=== PATIENT | male | born 1995 | race Caucasian/White ===

== ENCOUNTER 2016-10-26 21:35 | Observation (INO) | payer BC ==
[2016-10-26 21:50] VITALS: BP 113/77; TEMP 98
[2016-10-26] MEDS ORDERED: Sodium Chloride 0.9% 1,000 ML IV ONE (22:00)
[2016-10-26] MEDS ORDERED: DiphenhydrAMINE 50 mg/ml Inj IVP STA (22:01)
[2016-10-26] MEDS ORDERED: DiphenhydrAMINE 50 mg/ml Inj ONE (22:03)
[2016-10-26] MEDS ORDERED: Albuterol-Ipratrop 3 mg / 0.5 (3 ml) UD INH STA (22:03)
[2016-10-26] MEDS ORDERED: Albuterol 0.083% Inhal Sol (2.5 mg/3 mL) UD IH STA (22:03)
--- NOTE | 2016-10-26 22:15 | C.PDOC ---
History Of Present Illness Patient presents to ED c/o feeling itchy, SOB, with itching in tongue and throat , swelling of lips after eating [employer] and shrimp prior to arrival. He has h /o asthma, admits to prior mild rash when eating shrimp. He denies CP, palpitations, sensation of throat closing up, vomiting. Time Seen by Provider: 10/26/16 22:00 Chief Complaint (Nursing): Allergic Reaction History Per: Patient, Family (at bedside) History/Exam Limitations: no limitations Context: Food Home/EMS Treatment: None Severity: Moderate Past Medical History Reviewed: Historical Data, Nursing Documentation, Vital Signs Vital Signs: Last Vital Signs Temp 98.0 F 10/26/16 21:47 Pulse 69 10/27/16 00:17 Resp 17 10/27/16 00:17 BP 113/77 10/26/16 21:47 Pulse Ox 96 10/27/16 00:58 - Medical History PMH: Asthma - [facility] Procedures CLOSURE SKIN & SUBCUTANEOUS NEC (10/30/13) TETANUS TOXOID ADMINIST (10/30/13) Family History: States: No Known Family Hx - Social History Hx Alcohol Use: No Hx Substance Use: No - Immunization History Hx Tetanus Toxoid Vaccination: Yes Hx Influenza Vaccination: Yes Hx Pneumococcal Vaccination: Yes Review Of Systems Except As Marked, All Systems Reviewed And Found Negative. Constitutional: Negative for: Fever, Chills ENT: Positive for: Other (itching in throat/tongue, lip swelling ) Cardiovascular: Negative for: Chest Pain, Palpitations Respiratory: Positive for: Shortness of Breath, Wheezing. Negative for: Cough Gastrointestinal: Negative for: Nausea, Vomiting Skin: Positive for: Rash Physical Exam - Physical Exam Appears: Non-toxic, In Acute Distress (im mild distress, speaking in short sentences) Skin: Rash (urticaria rash scattered on arms, chest) Head: Normacephalic Oral Mucosa: Moist Tongue: Normal Appearing, No Swelling (mild swelling of lips noted ) Lips: No Normal Appearing (mild swelling noted) Throat: Normal, No Erythema, No Exudate, No Drooling Cardiovascular: Rhythm Regular (tachycardic ) Respiratory: No Accessory Muscle Use, No Rales, No Rhonchi, Wheezing (mild), Other (decreased air entry B/L ) Gastrointestinal/Abdominal: Normal Exam, Bowel Sounds, Soft, No Tenderness Neurological/Psych: Oriented x3 ED Course And Treatment - Laboratory Results Result Diagrams: 10/26/16 22:12 10/26/16 22:12 O2 Sat by Pulse Oximetry: 96 (RA) Pulse Ox Interpretation: Normal Progress Note: Patient placed on cadiac monitor. Given duoneb treatment, IV solumedrol, IV pepcid, IV benadryl and IV NS bolus. Patient placed in ED obervsation, to be observed in ED x 3 hours. Reevaluation Time: 01:00 Reassessment Condition: Improved (Patient reassessed, currently resting comfortably, states he feels much better. Rash and mild lip swelling have improved. Patient speaking in full sentences, has no drooling/stridor, vitals WNL. Rxs given for predisone, benadryl amnd albuterol inhaler. He was instructed to follow up with PMD/clinic in 1-2 days, and understands he should return to ED if symptoms worsen.) Disposition Counseled Patient/Family Regarding: Studies Performed, Diagnosis, Need For Followup, Rx Given - Disposition Disposition: HOME/ ROUTINE Disposition Time: 01:00 Condition: GOOD - POA Present On Arrival: None - Clinical Impression Clinical Impression: Allergic reaction, Asthma
[2016-10-26 22:23] LABS: CHLORIDE 102 mmol/L (98-107); POTASSIUM 3.8 mmol/L (3.6-5.2); SODIUM 137 mmol/L (132-148)
[2016-10-26] MEDS ORDERED: Albuterol-Ipratrop 3 mg / 0.5 (3 ml) UD ONE (22:23)
[2016-10-26] MEDS ORDERED: Albuterol 0.083% Inhal Sol (2.5 mg/3 mL) UD ONE (22:23)
[2016-10-26 22:25] LABS: BILIRUBIN,TOTAL 0.6 mg/dL (0.2-1.3); GFR AFRICAN-AMERICAN > 60
[2016-10-26 22:26] LABS: ALB/GLOB RATIO 1.2 (1.0-2.1); ALKALINE PHOSPHATASE 60 U/L (38-126); ALT/SGPT 64 U/L (21-72); AST/SGOT 41 U/L (17-59); BLOOD UREA NITROGEN 22 mg/dL (9-20); CALCIUM 8.7 mg/dl (8.6-10.4); CARBON DIOXIDE 21 mmol/L (22-30); GLUCOSE,RANDOM 108 mg/dL (75-110); TOTAL PROTEIN 7.9 g/dL (6.3-8.3)
[2016-10-26 22:27] LABS: BASO # 0.2 K/uL (0.0-0.2); BASO % 1.6 % (0.0-2.0); EOS # 0.1 K/uL (0.0-0.7); EOS % 0.9 % (0.0-4.0); HEMATOCRIT 51.1 % (35.0-51.0); LYMPH # 4.6 K/uL (1.0-4.3); LYMPH % 41.6 % (20.0-40.0); MEAN CELL VOLUME 85.1 fL (80.0-94.0); MEAN CORPUSCULAR HEMOGLOBIN 28.8 pg (27.0-31.0); MEAN CORPUSCULAR HGB CONC 33.8 g/dL (33.0-37.0); MEAN PLATELET VOLUME 7.6 fL (7.2-11.7); MONO # 0.8 K/uL (0.0-0.8); MONO % 7.4 % (0.0-10.0); NRBC % 0.2 % (0.0-2.0); RED CELL DISTRIBUTION WIDTH 12.7 % (11.5-14.5); WHITE BLOOD COUNT 11.2 K/uL (4.8-10.8)
[2016-10-27 00:18] VITALS: PULSE 69; RESP 17
[2016-10-27 00:58] VITALS: O2SAT 96
== END 2016-10-27 01:00 | disposition home or self-care (01) ==
LOC: C.ER 21:35 → C.9OBSV 22:01
PROVIDERS: ADMIT Emergency Medicine; ATTEND Emergency Medicine
DX: L27.2 Dermatitis due to ingested food (principal); J45.909 Unspecified asthma, uncomplicated; Z68.37 Body mass index [BMI] 37.0-37.9, adult
CPT/HCPCS: 80053; 85025; 94640; 96361; 96374; 96375; 99283; G0378; J1200; J2930; J7040